=== PATIENT | male | born 1965 ===

== ENCOUNTER 2017-03-22 11:59 | Emergency (ER) | payer BC ==
[2017-03-22 12:07] VITALS: BMI 29.0
[2017-03-22 12:09] VITALS: RESP 18
--- NOTE | 2017-03-22 13:12 | C.PDOC ---
History Of Present Illness 51 y/o male c/o left buttock pain radiating down lateral left leg for 2 weeks. Patient states pain worsens with hot showers and hot pads. Denies trauma, new weakness, new numbness, back pain, or other associated symptoms. Time Seen by Provider: 03/22/17 12:25 Chief Complaint (Nursing): Back Pain History Per: Patient History/Exam Limitations: no limitations Onset/Duration Of Symptoms: Days Current Symptoms Are (Timing): Still Present Quality Of Discomfort: "Pain" Recent travel outside of the [facility]: No Past Medical History Reviewed: Historical Data, Nursing Documentation, Vital Signs Vital Signs: Last Vital Signs Temp 97.6 F 03/22/17 12:08 Pulse 102 H 03/22/17 12:08 Resp 18 03/22/17 12:08 BP 132/90 03/22/17 12:08 Pulse Ox 100 03/22/17 13:12 - Medical History PMH: No Chronic Diseases Family History: States: Unknown Family Hx - Social History Hx Tobacco Use: No Hx Alcohol Use: No Hx Substance Use: No - Immunization History Hx Tetanus Toxoid Vaccination: No Hx Influenza Vaccination: No Hx Pneumococcal Vaccination: No Review Of Systems Except As Marked, All Systems Reviewed And Found Negative. Constitutional: Negative for: Fever, Chills Musculoskeletal: Positive for: Leg Pain (left leg, left buttock) Skin: Negative for: Rash Neurological: Negative for: Weakness, Numbness Physical Exam - Physical Exam Appears: Non-toxic, No Acute Distress Skin: Normal Color, Warm, Dry, No Rash Head: Atraumatic, Normacephalic Extremity: Normal ROM, Tenderness (left buttock ), Capillary Refill (< 2 sec.), No Deformity, No Swelling, Other (no rash; no weakness or paresthesia) Extremity: Bilateral: Normal Color And Temperature Neurological/Psych: Oriented x3, Normal Motor, Normal Sensation ED Course And Treatment O2 Sat by Pulse Oximetry: 100 (RA) Pulse Ox Interpretation: Normal Progress Note: toradol, ice to L buttock Reevaluation Time: 13:30 Reassessment Condition: Improved Medical Decision Making Medical Decision Making: L sciatica/pyrifomis syndrome Disposition Doctor Will See Patient In The: Office Counseled Patient/Family Regarding: Studies Performed, Diagnosis - Disposition Referrals: [facility] [Outside] [facility] [Outside] Disposition: HOME/ ROUTINE Disposition Time: 13:12 Condition: GOOD Additional Instructions: sigue hielo 1/2 hora por hora, NADA CALIENTE, Ibuprofeno 400-600 mg cada 6 horas selma necessario Pepcid 20 mg en la noche para prevenir irritacion' del estomago debido al ibuprofeno. Sigue en nuest[facility] (gratis) en 1 semana selma necessario. Instructions: Piriformis Syndrome (ED) Forms: [employer] (German) Print Language: SOMALI - Clinical Impression Clinical Impression: Pyriformis syndrome - Scribe Statement The provider has reviewed the documentation as recorded by the Scribe SM All medical record entries made by the Scribe were at my direction and personally dictated by me. I have reviewed the chart and agree that the record accurately reflects my personal performance of the history, physical exam, medical decision making, and the department course for this patient. I have also personally directed, reviewed, and agree with the discharge instructions and disposition.
[2017-03-22 13:39] VITALS: BP 128/72; PULSE 89; TEMP 98.3; O2SAT 98
== END 2017-03-22 13:50 | disposition home or self-care (01) ==
LOC: C.ER 11:59
DX: G57.00 Lesion of sciatic nerve, unspecified lower limb (principal)
CPT/HCPCS: 96372; 99283; J1885